=== PATIENT | female | born 1960 | race African-American/Black ===

== ENCOUNTER → 2017-02-15 | Outpatient (CLI) | payer OTHER, MEDICAID | LOC: CIMAGING 10:04 | DX: N28.1 Cyst of kidney, acquired (principal); N13.30 Unspecified hydronephrosis; K80.20 Calculus of gallbladder without cholecystitis without obstruction; E87.6 Hypokalemia | CPT/HCPCS: 76770-PO ==

== ENCOUNTER → 2017-05-16 | Outpatient (CLI) | payer OTHER, MEDICAID | LOC: CIMAGING 11:03 | PROVIDERS: ATTEND Family Medicine | DX: Z12.31 Encounter for screening mammogram for malignant neoplasm of breast (principal) ==

== ENCOUNTER → 2018-04-07 | Outpatient (CLI) | payer MEDICAID, OTHER | LOC: CIMAGING 12:30 | PROVIDERS: ATTEND Family Medicine | DX: N60.01 Solitary cyst of right breast (principal); N60.02 Solitary cyst of left breast | CPT/HCPCS: 76641-PO ==

== ENCOUNTER → 2018-05-11 | Day surgery (SDC) | payer OTHER, MEDICAID ==
[~2018-05-11] MED LIST: IOPAMIDOL (ISOVUE 370) 100 ML BTL IV ONE
== END | disposition home or self-care (01) ==
LOC: FIMAGING 07:35
PROVIDERS: ATTEND Family Medicine
DX: N60.09 Solitary cyst of unspecified breast (principal)
CPT/HCPCS: Q9967

== ENCOUNTER → 2018-06-26 | Outpatient (CLI) | payer OTHER, MEDICAID ==
[~2018-06-26] MED LIST changes: +GADOBUTROL 10 ML VIAL IVP ONE; -IOPAMIDOL (ISOVUE 370) 100 ML BTL IV ONE
== END ==
LOC: FIMAGING 11:03
PROVIDERS: ATTEND Orthopaedic Surgery Foot and Ankle Surgery
DX: N60.01 Solitary cyst of right breast (principal); N60.02 Solitary cyst of left breast; S82.61XA Displaced fracture of lateral malleolus of right fibula, initial encounter for closed fracture; Z98.890 Other specified postprocedural states
CPT/HCPCS: 73721; A9585; C8908

== ENCOUNTER → 2018-06-26 | Outpatient (CLI) | payer OTHER, MEDICAID | LOC: FIMAGING 11:05 ==

== ENCOUNTER 2018-07-05 08:48 | Day surgery (SDC) | payer OTHER, MEDICAID ==
[2018-07-05] MEDS ORDERED: ceFAZolin 2 GM/DEXTROSE 100 ML IV ONE (09:06)
[2018-07-05] MEDS ORDERED: LR 1,000 ML IV ONE (09:07)
--- NOTE | 2018-07-05 09:23 | PDHPUP ---
History & Physical Update H&P update statement: This history and physical update is based on an assessment of the patient which was completed after admission or registration (within 24 hours), but prior to the surgery/procedure. H&P update: H&P reviewed & patient examined, no change in patient's condition since H&P completed
[2018-07-05] MEDS ORDERED: BUPIVACAINE 0.5% 30 ML SDV ONE (09:30)
[2018-07-05] MEDS ORDERED: MIDAZOLAM 2 MG/2 ML VIAL IVP ONE (09:45)
--- NOTE | 2018-07-05 09:47 | PDANEPAE ---
ANE Past Medical History - Cardiovascular History Hx Hypertension: Yes Hx Arrhythmias: No Hx Chest Pain: No Hx Coronary Artery / Peripheral Vascular Disease: No Hx CHF / Valvular Disease: No Cardiovascular History Comment: CP, DX GAS 2 Y AGO, NONE SINCE - Pulmonary History Hx COPD: No Hx Asthma/Reactive Airway Disease: No Hx Recent Upper Respiratory Infection: No Hx Oxygen in Use at Home: Yes Hx Sleep Apnea: Yes Sleep Apnea Screening Result - Last Documented: Positive Pulmonary History Comment: gianni positive using bipap currently - Neurologic History Hx Cerebrovascular Accident: No Hx Seizures: No Hx Dementia: No Neurologic History Comment: RSD- REFLEX SYMPATHETIC DYSTOPHY R ANKLE- CHRONIC PAIN - Endocrine History Hx Diabetes: No Endocrine History Comment: PRE DIABETIC- CHECK SUGAR ON ADM. WILL HAVE FASTING BLOOD SUGAR TESTING BEFORE SURG - Renal History Hx Renal Disorders: Yes Renal History Comment: INTERSTITIAL CYSTITIS - Liver History Hx Hepatic Disorders: No - Neurological & Psychiatric Hx Hx Neurological and Psychiatric Disorders: Yes Neurological / Psychiatric History Comment: PTSD. DEPRESSION - Cancer History Hx Cancer: No - Congenital Disorder History Hx Congenital Disorders: No - GI History Hx Gastrointestinal Disorders: Yes Gastrointestinal History Comment: CONSTIPATION RT PAIN MEDS - Other Health History Other Health History: wears glasses - Chronic Pain History Chronic Pain: Yes (R ANKLE, LOW BACK, GINNY KNEES) - Surgical History Prior Surgeries: right knee scope with Neeraj 05/22/13. right breast mass excision with Angel 02/04/11. right knee replacement. failed nerve reconstruction in foot. R BREAST MASS EXC X2. R GASTRONEMUS LENGTHENING '09. X 2 LOW BACK SURG 2011, 2012. R ACL RECONSTR '04. HYSTERECTOMY '-FIBROID. R ANKLE RECONSTR '07 GASTRIC BYPASS '02 ANE Review of Systems Review of Systems: - Exercise capacity METS (RN): 2 METS ANE Patient History - Allergies Allergies/Adverse Reactions: Sulfa (Sulfonamide Antibiotics) Allergy (Verified 07/04/18 16:40) STOMACH CRAMPS, HIVES - Home Medications Home Medications: Fentanyl patch TD 08/04/09 [Last Taken 07/04/18] OXYCODONE HCL 08/04/09 [Last Taken 07/05/18] oxyCONTIN 08/04/09 [Last Taken Unknown] Ativan 07/04/18 [Last Taken 06/30/18] Diltiazem 07/04/18 [Last Taken 07/05/18] Gabapentin 07/04/18 [Last Taken 07/04/18] Imuran 50 mg (*) 07/04/18 [Last Taken 07/05/18] Linzess 07/04/18 [Last Taken 07/05/18] Lisinopril 07/04/18 [Last Taken 07/05/18] Montelukast Sodium 07/04/18 [Last Taken 07/04/18] Multivitamins 07/04/18 [Last Taken 07/04/18] Nicotine Patch 07/04/18 [Last Taken Unknown] PRISTIQ 07/04/18 [Last Taken Unknown] Probiotic 07/04/18 [Last Taken Unknown] Protonix 07/04/18 [Last Taken 07/05/18] Rosuvastatin Calcium 07/04/18 [Last Taken 07/05/18] Tizanidine HCl 07/04/18 [Last Taken 07/05/18] Vitamin D3 07/04/18 [Last Taken 07/04/18] traZODone 150MG (*) 07/04/18 [Last Taken 07/04/18] - NPO status NPO Since - Liquids (Date): 07/05/18 NPO Since - Liquids (Time): 06:00 NPO Since - Solids (Date): 07/04/18 NPO Since - Solids (Time): 22:00 - Smoking Hx Smoking Status: Former smoker - Family Anes Hx Family Hx Anesthesia Complications: none ANE Labs/Vital Signs - Vital Signs Blood Pressure: 143/91 Heart Rate: 79 Respiratory Rate: 16 O2 Sat (%): 95 Height: 163.83 cm Weight: 111.13 kg ANE Physical Exam - Airway Neck exam: FROM Mallampati Score: Class 2 Mouth exam: dentures - Pulmonary Pulmonary: no respiratory distress - Cardiovascular Cardiovascular: regular rate and rhythym - ASA Status ASA Status: III ANE Anesthesia Plan Anesthesia Plan: GA w LMA
[2018-07-05] MEDS ORDERED: fentaNYL 100 MCG/2 ML INJ ONE ×3 (10:02→11:43)
[2018-07-05] MEDS ORDERED: KETOROLAC 30 MG/1 ML SDV ONE (10:03)
[2018-07-05] MEDS ORDERED: LIDOCAINE 2% 100 MG/5 ML SYR ONE (10:03)
[2018-07-05] MEDS ORDERED: PROPOFOL 200 MG/20 ML VIAL ONE (10:03)
[2018-07-05] MEDS ORDERED: ONDANSETRON 4 MG/2 ML VIAL ONE (10:03)
[2018-07-05] MEDS ORDERED: NALOXONE HCL 0.4 MG/ML INJ IVP PRN (11:28)
[2018-07-05] MEDS ORDERED: HYDROCODONE/APAP 5/325 TAB PO PRN (11:28)
[2018-07-05] MEDS ORDERED: HYDROmorphONE/DILAUDID 2 MG/ML INJ IVP PRN (11:28)
[2018-07-05] MEDS ORDERED: oxyCODONE IR 5 MG TAB PO PRN (11:28)
[2018-07-05] MEDS ORDERED: ALBUTEROL 3 ML DEYVIAL IH PRN (11:28)
[2018-07-05] MEDS ORDERED: ONDANSETRON 4 MG/2 ML VIAL IVP PRN (11:28)
--- NOTE | 2018-07-05 11:30 | POSTANESTH ---
Post Anesthetic Evaluation Cardiovascular Status: Similar to Pre-Op Cond Respiratory Status: Similar to Pre-op Cond. Level of Consciousness/Mental Status: Mildly Sleepy, Arousable Pain Control: Adequate, Prn Tx Ordered Nausea/Vomiting Control: Adequate, Prn Tx Ordered Complications Possibly Related to Anesthesia: None Noted
--- NOTE | 2018-07-05 11:32 | POSTOPPROG ---
Post Op Note Date of Operation: 07/05/18 Surgeon: Cesar Ortiz Justice Professor: Monserrat Lainez Anesthesiologist: Rafi Ojeda Anesthesia: GET(General Endotracheal) Pre-op Diagnosis: B nipple discharge, possible papillomas Post-op Diagnosis: same, likely cysts, clogged breast duct with abscess Procedure: B nipple explorations with B excisional breast biopsy Findings: milky drainage c cystic material of L breast, and purulence R breast Inf/Abcess present in the surg proc area at time of surgery?: Yes Depth: Superfical (Skin SQ) EBL: Minimal Complications: none Specimen(s): B breast tissue sent for both pathology and culture
[2018-07-05] MEDS: fentaNYL 100 MCG/2 ML INJ IVP PRN ×2 (11:44→11:50)
[2018-07-05 13:22] VITALS: BP 121/75
--- NOTE | 2018-07-05 20:03 | GOP ---
[f rep st] OPERATIVE REPORT DATE OF OPERATION: 07/05/2018 SURGEON: Cesar Ortiz MD LEAN COACH: Monserrat Lainez PA-C. ANESTHESIOLOGIST: Dr. Ojeda. PREOPERATIVE DIAGNOSIS: Bilateral nipple discharge with questionable papilloma on the left. POSTOPERATIVE DIAGNOSIS: Bilateral nipple discharge with questionable papilloma on the left. Path p ending. PROCEDURE PERFORMED: Bilateral nipple duct exploration with excisional breast biopsies bilaterally. FINDINGS: The patient was found to have clear fluid discharge on the left breast but no definite pal pable mass, although path is pending. She did have a small sebaceous cyst underneath the nipple whic h was removed as well. On the right breast, she had a small abscess cyst in the nipple itself, but n o other masses were seen. DESCRIPTION OF PROCEDURE: The patient was brought to the operating room where she received satisfact ory general endotracheal anesthesia by Dr. Ojeda. She was placed in supine position and prepped a nd draped in the usual sterile fashion. The areas were infiltrated with 0.5% Marcaine, and bilateral circumareolar incisions were made and carried over to the nipple area. The ductal system was dissec sonia free from surrounding skin and subcutaneous tissue and then divided underneath the nipple. Excis ional biopsy was extended down to the center of the breast tissue removing a good sample of ductal ti ssue. Both sides were handled in a similar manner. The nipples were explored. On the left side, chiquita cotter had a sebaceous cyst approximately 6 mm in size, and this was completely excised and sent for cultu re. On the right side, she had a similar but smaller cyst which was not grossly infected, but it was also sent for culture. Hemostasis was carefully obtained. The nipple was reconstructed underneath with 3-0 Vicryl sutures. The breast tissue was closed with interrupted 3-0 Vicryl sutures as well as the subcu. The skin was then closed with 4-0 Monocryl subcuticular stitches and dressed with Dermab ond. She tolerated the procedure well. There were no complications. The wounds were fully infiltra sonia with 0.5% Marcaine. She was taken to recovery room in good condition. Copy requested to: DARRIAN CANO MD /[id number]/MODL
--- NOTE | 2018-07-11 15:16 | CPEKG ---
Test Reason : OPEN Blood Pressure : / mmHG Vent. Rate : 078 BPM Atrial Rate : 077 BPM P-R Int : 127 ms QRS Dur : 085 ms QT Int : 378 ms P-R-T Axes : 044 058 062 degrees QTc Int : 431 ms Sinus rhythm Confirmed by Demetrius Wisdom ([id number]) on 07/11/2018 3:16:16 PM Referred By: Cesar Ortiz Confirmed By:Demetrius Wisdom
== END 2018-07-05 13:20 | disposition home or self-care (01) ==
LOC: FSGY 08:48
PROVIDERS: ATTEND Surgery
PROC: 0HBV0ZX Excision of Bilateral Breast, Open Approach, Diagnostic (ICD-10-PCS; principal; 2018-07-05 10:00)
PROC: 0HBX0ZX Excision of Left Nipple, Open Approach, Diagnostic (ICD-10-PCS; principal; 2018-07-05 10:00)
DX: N64.89 Other specified disorders of breast (principal); N64.52 Nipple discharge; G47.33 Obstructive sleep apnea (adult) (pediatric); R73.03 Prediabetes; Z80.3 Family history of malignant neoplasm of breast
CPT/HCPCS: J0690; J1885; J2001; J2250; J2405; J2704; J3010

== ENCOUNTER 2018-09-01 11:27 | Day surgery (SDC) | payer OTHER, MEDICAID ==
--- NOTE | 2018-08-30 13:57 | GHP ---
[f rep st] PREOP HISTORY AND PHYSICAL DATE OF ADMISSION: 09/01/2018 CHIEF COMPLAINT: Right breast abscess. HISTORY OF PRESENT ILLNESS: The patient is a 57-year-old female, status post bilateral nipple explor ations with excisional biopsy and cultures. Her biopsies were benign and her cultures grew Corynebac terium. She was treated with an oral course of antibiotics. She was doing well until a few days ago when she noticed increased swelling and drainage from her right nipple. She denies fever and chills . PAST MEDICAL HISTORY: Chronic pain, high blood pressure, osteoarthritis, uterine fibroids, breast cy sts. PAST SURGICAL HISTORY: Spinal fusion, breast cyst excisions, ankle surgery. FAMILY MEDICAL HISTORY: Noncontributory. SOCIAL HISTORY: The patient is a former smoker. She smoked for 30 years and recently quit. She parker s not drink alcohol. REVIEW OF SYSTEMS: Ten-point review of systems performed is negative except for what is in the HPI. PHYSICAL EXAM: GENERAL: Well appearing, well dressed female in no acute distress. HEENT: Normocep halic, atraumatic. No gross hearing deficit. Mucous membranes moist, PERRLA. PSYCHIATRIC: Appropr iate mood and affect. NEUROLOGIC: Alert and oriented. CARDIAC: Regular rate and rhythm. No click s, murmurs, rubs. CHEST: Clear to auscultation bilaterally. No crackles, rales, or rhonchi. ABDOM EN: Soft, nontender, nondistended. SKIN: Warm and dry, no rashes or jaundice. MUSCULOSKELETAL: M oves all extremities equally. RIGHT BREAST: Periareolar breast incision is open with seropurulent d rainage. The area is diffusely edematous. Tender to palpation. IMPRESSION/PLAN: This is a 57-year-old female who recently underwent bilateral nipple explorations f or breast cysts. She was doing well until a few days ago when she began to experience increased sore ness and drainage at the site of her right periareolar incision. We have cultured it and the culture s are still pending. We have discussed all risks and options. Risks of surgery include, but are not limited to infection, bleeding, need for further surgery, damage to surrounding structures, includin g nerves, heart attack, and . Patient understands and wishes to proceed. We will proceed with incision and drainage of right breast abscess. /[id number]/MODL
[2018-09-01] MEDS ORDERED: BUPIVACAINE 0.5% 30 ML SDV ONE (11:31)
[2018-09-01] MEDS ORDERED: ceFAZolin 2 GM/DEXTROSE 100 ML IV ONE (11:43)
[2018-09-01] MEDS ORDERED: LR 1,000 ML IV ONE (11:43)
[2018-09-01] MEDS ORDERED: MIDAZOLAM 2 MG/2 ML VIAL ONE (12:08)
[2018-09-01] MEDS ORDERED: fentaNYL 100 MCG/2 ML INJ ONE ×2 (12:09→13:38)
[2018-09-01] MEDS ORDERED: PROPOFOL 200 MG/20 ML VIAL ONE (12:09)
[2018-09-01] MEDS ORDERED: METOCLOPRAMIDE 10 MG/2 ML VIAL ONE (12:09)
[2018-09-01] MEDS ORDERED: ONDANSETRON 4 MG/2 ML VIAL ONE (12:09)
[2018-09-01 12:39] LABS: PLATELET COUNT 285 10^3/uL (150-400)
--- NOTE | 2018-09-01 12:43 | PDANEPAE ---
ANE Past Medical History - Cardiovascular History Hx Hypertension: Yes Hx Arrhythmias: No Hx Chest Pain: No Hx Coronary Artery / Peripheral Vascular Disease: No Hx CHF / Valvular Disease: No Hx Palpitations: No Cardiovascular History Comment: CP, DX GAS 2 Y AGO, NONE SINCE - Pulmonary History Hx COPD: No Hx Asthma/Reactive Airway Disease: No Hx Recent Upper Respiratory Infection: No Hx Oxygen in Use at Home: Yes Hx Sleep Apnea: Yes Sleep Apnea Screening Result - Last Documented: Positive Pulmonary History Comment: gianni positive using bipap currently - Neurologic History Hx Cerebrovascular Accident: No Hx Seizures: No Hx Dementia: No Neurologic History Comment: RSD- REFLEX SYMPATHETIC DYSTOPHY R ANKLE- CHRONIC PAIN - Endocrine History Hx Diabetes: No Endocrine History Comment: PRE DIABETIC- CHECK SUGAR ON ADM. WILL HAVE FASTING BLOOD SUGAR TESTING BEFORE SURG - Renal History Hx Renal Disorders: Yes Renal History Comment: INTERSTITIAL CYSTITIS - Liver History Hx Hepatic Disorders: No - Neurological & Psychiatric Hx Hx Neurological and Psychiatric Disorders: Yes Neurological / Psychiatric History Comment: PTSD. DEPRESSION - Cancer History Hx Cancer: No - Congenital Disorder History Hx Congenital Disorders: No - GI History Hx Gastrointestinal Disorders: Yes Gastrointestinal History Comment: CONSTIPATION RT PAIN MEDS - Other Health History Other Health History: wears glasses - Chronic Pain History Chronic Pain: Yes (R ANKLE, LOW BACK, GINNY KNEES) - Surgical History Prior Surgeries: bilateral excision and exploration of nipple ducts with Angel. right knee scope with Neeraj 05/22/13. right breast mass excision with Angel 02/04/11. right knee replacement. failed nerve reconstruction in foot. R BREAST MASS EXC X2. R GASTRONEMUS LENGTHENING '09. X 2 LOW BACK SURG 2011, 2012. R ACL RECONSTR '04. HYSTERECTOMY '-FIBROID. R ANKLE RECONSTR '07 GASTRIC BYPASS '02 ANE Review of Systems Review of Systems: - Exercise capacity METS (RN): 2 METS ANE Patient History - Allergies Allergies/Adverse Reactions: Sulfa (Sulfonamide Antibiotics) Allergy (Verified 08/31/18 10:12) STOMACH CRAMPS, HIVES - Home Medications Home Medications: Fentanyl patch TD 08/04/09 [Last Taken 08/30/18] OXYCODONE HCL 08/04/09 [Last Taken 09/01/18 10:00] oxyCONTIN 08/04/09 [Last Taken Unknown] Ativan 07/04/18 [Last Taken 06/30/18] Diltiazem 07/04/18 [Last Taken 09/01/18 08:30] Gabapentin 07/04/18 [Last Taken 08/30/18] Imuran 50 mg (*) 07/04/18 [Last Taken 09/01/18 08:30] Linzess 07/04/18 [Last Taken 09/01/18 08:30] Lisinopril 07/04/18 [Last Taken 09/01/18 08:30] Montelukast Sodium 07/04/18 [Last Taken 09/01/18 08:30] Multivitamins 07/04/18 [Last Taken 08/31/18 18:00] Nicotine Patch 07/04/18 [Last Taken Unknown] PRISTIQ 07/04/18 [Last Taken 09/01/18 08:30] Probiotic 07/04/18 [Last Taken 08/29/18] Protonix 07/04/18 [Last Taken 09/01/18 08:30] Rosuvastatin Calcium 07/04/18 [Last Taken 09/01/18 08:30] Tizanidine HCl 07/04/18 [Last Taken 09/01/18 08:30] Vitamin D3 07/04/18 [Last Taken 08/31/18 19:00] traZODone 150MG (*) 07/04/18 [Last Taken 08/31/18 21:00] Propranolol HCl BID 08/31/18 [Last Taken 09/01/18 08:30] Sudafed 24-Hour 08/31/18 [Last Taken 09/01/18 06:00] - NPO status NPO Since - Liquids (Date): 09/01/18 NPO Since - Liquids (Time): 09:00 NPO Since - Solids (Date): 08/31/18 NPO Since - Solids (Time): 23:00 - Smoking Hx Smoking Status: Former smoker - Family Anes Hx Family Hx Anesthesia Complications: none ANE Labs/Vital Signs - Labs Result Diagrams: 09/01/18 12:20 - Vital Signs Blood Pressure: 155/96 Heart Rate: 86 Respiratory Rate: 18 O2 Sat (%): 94 Height: 163.83 cm Weight: 111.13 kg ANE Physical Exam - Airway Mallampati Score: Class 2 - ASA Status ASA Status: II ANE Anesthesia Plan Anesthesia Plan: GA w LMA Urgent/Emergent Case: Lynette fuentes completed preop but documented later for safe timely pt care
[2018-09-01] MEDS ORDERED: LR 500 ML IV PRN (13:21)
[2018-09-01] MEDS ORDERED: NALOXONE HCL 0.4 MG/ML INJ IVP PRN (13:21)
[2018-09-01] MEDS ORDERED: ACETAMINOPHEN 500 MG TAB PO PRN (13:21)
[2018-09-01] MEDS ORDERED: DIAZEPAM 10 MG/2 ML SYR IVP PRN (13:21)
[2018-09-01] MEDS ORDERED: ONDANSETRON 4 MG/2 ML VIAL IVP PRN (13:21)
--- NOTE | 2018-09-01 13:23 | POSTANESTH ---
Post Anesthetic Evaluation Cardiovascular Status: Similar to Pre-Op Cond Respiratory Status: Normal, Stable Level of Consciousness/Mental Status: Can Participate in Eval Pain Control: Adequate, Prn Tx Ordered Nausea/Vomiting Control: Adequate, Prn Tx Ordered Complications Possibly Related to Anesthesia: None Noted
--- NOTE | 2018-09-01 13:23 | POSTOPPROG ---
Post Op Note Date of Operation: 09/01/18 Surgeon: Cesar Ortiz Rate Reviewer: Nabeel Anesthesiologist: Preston Anesthesia: IV Sedation Pre-op Diagnosis: R breast abscess Post-op Diagnosis: Same Indication: Same Procedure: Right breast abscess I&D Findings: Retroareolar abscess Inf/Abcess present in the surg proc area at time of surgery?: Yes Depth: Superfical (Skin SQ) EBL: Minimal Specimen(s): Right breast abscess- permanent
[2018-09-01] MEDS: fentaNYL 100 MCG/2 ML INJ IVP PRN ×2 (13:40→14:20)
[2018-09-01] MEDS ORDERED: DIAZEPAM 10 MG/2 ML SYR ONE (14:11)
[2018-09-01 15:42] VITALS: BP 140/89
--- NOTE | 2018-09-04 03:59 | GOP ---
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 Breast abscess. PROCEDURE PERFORMED: Dissection of the nipple cutaneous fistula and I and D of a deep breast abscess . FINDINGS: The patient was found to have a thimble sized abscess in a subareolar position. She had a fistula tract between the previous old I and D site in the nipple. DESCRIPTION OF PROCEDURE: The patient was taken to the operating room where she received satisfactor y general endotracheal anesthesia. She was placed in the supine position with the right arm outstretc hed on an arm board. The external opening of the fistula was probed with a malleable probe and this w as extended up through the nipple. A radial incision was then made through the nipple to the edge of the areola to open up the fistula tract. This was accomplished and resulted in identifying a deeper breast abscess. The abscess was drained and cultured. The abscess hong were sharply excised and de brided. Hemostasis was obtained. The wound was curetted and then packed open with iodoform gauze an d infiltrated with 0.5% Marcaine. She tolerated the procedure well. She was taken to recovery room in good condition. There were no complications. Copy requested to: Tatianna Osei M.D. /[id number]/KAYLEENL
== END 2018-09-01 15:31 | disposition home or self-care (01) ==
LOC: FSGY 11:27
PROVIDERS: ATTEND Surgery
PROC: 0HBT0ZZ Excision of Right Breast, Open Approach (ICD-10-PCS; principal; 2018-09-01 13:30)
DX: N61.1 Abscess of the breast and nipple (principal); Z87.891 Personal history of nicotine dependence
CPT/HCPCS: J0690; J2250; J2405; J2704; J2765; J3010; J3360